=== PATIENT | female | born 1955 | race African-American/Black ===

== ENCOUNTER 2018-11-11 08:05 | Day surgery (SDC) | payer OTHER ==
[~2018-11-11] VITALS: Ht 162.6 cm; Wt 73.0 kg
[2018-11-11] MEDS ORDERED: METFORMIN (08:38)
[2018-11-11] MEDS ORDERED: GLIMEPIRIDE (08:38)
[2018-11-11] MEDS ORDERED: LOSARTAN (08:38)
[2018-11-11] MEDS ORDERED: SIMVASTATIN (08:38)
[2018-11-11] MEDS ORDERED: METOPROLOL (08:38)
[2018-11-11 08:39] VITALS: Ht 162.6 cm; Wt 73.0 kg
[2018-11-11] MEDS ORDERED: LIDOCAINE 4% SOLUTION 50 ML BTL ONE ×2 (09:07→09:30)
[2018-11-11 09:25] VITALS: BP 228/106; PULSE 70; RESP 18
[2018-11-11] MEDS ORDERED: LABETALOL HCL 20MG INJ ONE (10:13)
[2018-11-11] MEDS ORDERED: MIDAZOLAM 1 MG/ML 2 ML INJ ONE ×2 (10:42→10:43)
[2018-11-11] MEDS ORDERED: FENTAnyl 50 MCG/ML VIAL ONE (10:43)
[2018-11-11 10:59] VITALS: BP 189/85; PULSE 68; RESP 18
== END 2018-11-11 12:54 | disposition home or self-care (01) ==
LOC: GIL 08:05
PROVIDERS: ATTEND Internal Medicine Gastroenterology
DX: Z12.11 Encounter for screening for malignant neoplasm of colon (principal); D12.4 Benign neoplasm of descending colon; K57.90 Diverticulosis of intestine, part unspecified, without perforation or abscess without bleeding; K29.50 Unspecified chronic gastritis without bleeding; I10 Essential (primary) hypertension; E11.9 Type 2 diabetes mellitus without complications
CPT/HCPCS: 43239; 45380; 82962; 88305; 88312; J2250; J3010; Z7610